=== PATIENT | male | born 1980 | race Caucasian/White ===

== ENCOUNTER 2017-01-03 11:06 | Emergency (ER) | payer SELFPAY | END 2017-01-03 11:52 | disposition home or self-care (01) | LOC: ERS 11:06 | DX: K04.7 Periapical abscess without sinus (principal); K02.9 Dental caries, unspecified; F17.210 Nicotine dependence, cigarettes, uncomplicated | CPT/HCPCS: 99283 ==

== ENCOUNTER 2018-02-26 12:56 | Emergency (ER) | payer SELFPAY | END 2018-02-26 14:20 | disposition home or self-care (01) | LOC: ERS 12:56 | DX: K04.7 Periapical abscess without sinus (principal); F17.210 Nicotine dependence, cigarettes, uncomplicated | CPT/HCPCS: 99282 ==